=== PATIENT | male | born 1970 | race Caucasian/White ===

== ENCOUNTER 2021-04-04 00:12 | Emergency (ER) | payer BC ==
[~2021-04-04] VITALS: Ht 177.8 cm; Wt 99.8 kg
[2021-04-04 00:20] VITALS: BP_SYST 148
--- NOTE | 2021-04-04 00:20 | NUR ---
Patient triaged and placed in waiting room. VSS and patient appears in no acute distress at this time.Awaiting available bed, and MD notified of need for MSE.
--- NOTE | 2021-04-04 01:01 | NUR ---
ER at triage room examining patient.
[2021-04-04] MEDS ORDERED: IBUPROFEN 800 MG TABLET PO ONE (01:15)
[2021-04-04] MEDS ORDERED: LIDOCAINE 1% 10 MG/ML, 20 ML MDV INJ ONE (01:15)
[2021-04-04] MEDS ORDERED: DIPH-TET-PERTUS Vaccine 0.5 ML VIAL (ADACEL) I.M. ONE (01:15)
--- NOTE | 2021-04-04 01:28 | NUR ---
Patient to ER bed 5 to gown for evaluation. Side rails up.
--- NOTE | 2021-04-04 02:00 | NUR ---
Dr. Mg at bedside
--- NOTE | 2021-04-04 02:45 | NUR ---
Dr. Mg at bedside
[2021-04-04] MEDS ORDERED: IBUP800T54 PO (02:56)
[2021-04-04 03:05] VITALS: BP_SYST 148
--- NOTE | 2021-04-04 03:05 | NUR ---
Patient given written and verbal discharge instructions and verbalizes understanding. ER MD discussed with patient the results and treatment provided. Patient in stable condition. ID arm band removed. Rx of MOTRIN given. Patient educated on pain management and to follow up with PMD. Pain Scale 2/10. Opportunity for questions provided and answered. Medication side effect fact sheet provided.
== END 2021-04-04 03:05 | disposition home or self-care (01) ==
LOC: SED 00:12
DX: S60.012A Contusion of left thumb without damage to nail, initial encounter (principal); Z79.899 Other long term (current) drug therapy; W22.8XXA Striking against or struck by other objects, initial encounter; Y93.89 Activity, other specified; Y92.008 Other place in unspecified non-institutional (private) residence as the place of occurrence of the external cause; Y99.8 Other external cause status
CPT/HCPCS: 11740; 73140; 90471; 90715; 99284; J2001